=== PATIENT | female | born 1950 | race Caucasian/White ===

== ENCOUNTER 2017-12-02 00:10 | Day surgery (SDC) | payer MEDICARE ==
[~2017-12-02 00:10] MED LIST: ABAT250V IV; ASPI325 PO; BIOTIN1 MG PO; BUPR75 PO; CALC1.25T PO; CALCAVITD PO; ESTROGEN/PROGESTERON; HYDR1TAB94 PO; LISI20 PO; MOXI400 PO
[2018-04-14] MEDS ORDERED: INFLECTRA100 MG IV (08:44)
[2018-08-05] MEDS ORDERED: DICL75ER PO (08:26)
== END 2017-12-02 09:01 | disposition home or self-care (01) ==
LOC: ATC 00:10
DX: M06.09 Rheumatoid arthritis without rheumatoid factor, multiple sites (principal)
CPT/HCPCS: 96365; J1602

== ENCOUNTER 2018-01-20 01:15 | Day surgery (SDC) | payer MEDICARE ==
[2018-04-14] MEDS ORDERED: INFLECTRA100 MG IV (08:44)
[2018-08-05] MEDS ORDERED: DICL75ER PO (08:26)
== END 2018-01-20 10:30 | disposition home or self-care (01) ==
LOC: ATC 01:15
DX: M06.09 Rheumatoid arthritis without rheumatoid factor, multiple sites (principal); I10 Essential (primary) hypertension
CPT/HCPCS: 96413; 96415; J1200; J7050; Q5102-ZB

== ENCOUNTER 2018-02-03 00:47 | Day surgery (SDC) | payer MEDICARE ==
[2018-02-03] MEDS ORDERED: SIMPONI AR50 MG/4 ML IV (08:18)
[2018-04-14] MEDS ORDERED: INFLECTRA100 MG IV (08:44)
[2018-08-05] MEDS ORDERED: DICL75ER PO (08:26)
== END 2018-02-03 10:30 | disposition home or self-care (01) ==
LOC: ATC 00:47
DX: M06.09 Rheumatoid arthritis without rheumatoid factor, multiple sites (principal)
CPT/HCPCS: 96413; 96415; J7050; Q5102-ZB

== ENCOUNTER → 2018-02-10 | Outpatient (CLI) | payer MEDICARE ==
[~2018-02-10] MED LIST changes: +SIMPONI AR50 MG/4 ML IV
== END | disposition home or self-care (01) ==
LOC: PLD 15:55 → LAB SHORT 15:55
DX: D48.5 Neoplasm of uncertain behavior of skin (principal)
CPT/HCPCS: 88305

== ENCOUNTER 2018-03-03 00:48 | Day surgery (SDC) | payer MEDICARE | END 2018-03-03 10:49 | disposition home or self-care (01) | LOC: ATC 00:48 | DX: M06.09 Rheumatoid arthritis without rheumatoid factor, multiple sites (principal); I10 Essential (primary) hypertension | CPT/HCPCS: 96413; 96415; J7050; Q5103 ==

== ENCOUNTER 2018-12-22 00:12 | Day surgery (SDC) | payer MEDICARE ==
[~2018-12-22 00:12] MED LIST changes: +DICL75ER PO; +INFLECTRA100 MG IV
== END 2018-12-22 22:37 | disposition home or self-care (01) ==
LOC: ATC 00:12
DX: M06.09 Rheumatoid arthritis without rheumatoid factor, multiple sites (principal)
CPT/HCPCS: 96413; 96415; J7050; Q5103

== ENCOUNTER 2019-02-02 00:30 | Day surgery (SDC) | payer MEDICARE | END 2019-02-02 11:39 | disposition home or self-care (01) | LOC: ATC 00:30 | DX: M06.09 Rheumatoid arthritis without rheumatoid factor, multiple sites (principal); M19.90 Unspecified osteoarthritis, unspecified site; I10 Essential (primary) hypertension | CPT/HCPCS: 96413; 96415; J7050; Q5103 ==

== ENCOUNTER 2019-03-16 00:11 | Day surgery (SDC) | payer MEDICARE | END 2019-03-16 22:37 | disposition home or self-care (01) | LOC: ATC 00:11 | DX: M06.09 Rheumatoid arthritis without rheumatoid factor, multiple sites (principal); I10 Essential (primary) hypertension; Z79.899 Other long term (current) drug therapy | CPT/HCPCS: 96413; 96415; J7050; Q5103 ==

== ENCOUNTER 2020-08-09 16:56 | Emergency (ER) | payer MEDICARE ==
[~2020-08-09] VITALS: Ht 157.5 cm; Wt 47.6 kg
== END 2020-08-09 21:58 | disposition home or self-care (01) ==
LOC: ER 16:56
DX: S01.112A Laceration without foreign body of left eyelid and periocular area, initial encounter (principal); I10 Essential (primary) hypertension; Z79.82 Long term (current) use of aspirin; Z79.899 Other long term (current) drug therapy; W01.0XXA Fall on same level from slipping, tripping and stumbling without subsequent striking against object, initial encounter; Y92.410 Unspecified street and highway as the place of occurrence of the external cause
CPT/HCPCS: 70450; 99283-25

== ENCOUNTER → 2020-10-19 | Outpatient (CLI) | payer MEDICARE | END | disposition home or self-care (01) | LOC: LAB SHORT 11:20 | DX: D48.5 Neoplasm of uncertain behavior of skin (principal) | CPT/HCPCS: 88305 ==

== ENCOUNTER → 2021-04-26 | Outpatient (CLI) | payer MEDICARE ==
[2021-04-26 12:51] LABS: U Amphetamine Screen Not Detected; U Barbituate Screen Not Detected; U Benzodiazapine Screen Not Detected; U Buprenorphine Screen Not Detected; U Cannabinoids Screen Not Detected; U Cocaine Screen Not Detected; U Methadone Screen Not Detected; U Methamphetamine Screen Not Detected; U Opiates Screen DETECTED; U Oxycodone Screen Not Detected; U Phencyclidine Screen Not Detected; U Propoxyphene Screen Not Detected
== END | disposition home or self-care (01) ==
LOC: LAB 06:30 → LAB SHORT 06:30 → LAB FUT 04-18 13:25
PROVIDERS: Anesthesiology
DX: Z51.81 Encounter for therapeutic drug level monitoring (principal); Z79.891 Long term (current) use of opiate analgesic

== ENCOUNTER 2023-11-29 10:49 | Emergency (ER) | payer OTHER, MEDICARE ==
[~2023-11-29] VITALS: Ht 157.5 cm; Wt 40.8 kg
[2023-11-29] MEDS ORDERED: OXYC5 PO (15:20)
[2023-11-29 15:30] VITALS: BP 119/81
== END 2023-11-29 15:42 | disposition home or self-care (01) ==
LOC: ER 10:49
DX: S72.115A Nondisplaced fracture of greater trochanter of left femur, initial encounter for closed fracture (principal); R55 Syncope and collapse; I10 Essential (primary) hypertension; M06.9 Rheumatoid arthritis, unspecified; Z87.891 Personal history of nicotine dependence; Z79.82 Long term (current) use of aspirin; Z79.899 Other long term (current) drug therapy; W01.0XXA Fall on same level from slipping, tripping and stumbling without subsequent striking against object, initial encounter; Y92.009 Unspecified place in unspecified non-institutional (private) residence as the place of occurrence of the external cause; Y93.89 Activity, other specified
CPT/HCPCS: 72192; 73502; 96374; 99284-25; A9270; J1885